=== PATIENT | male | born 1930 | race Two or more races ===

== ENCOUNTER 2016-04-28 08:24 | Outpatient (CLI) | payer MEDICARE, OTHER | END 2016-04-28 08:30 | LOC: LAB 08:24 | PROVIDERS: ATTEND Internal Medicine Cardiovascular Disease | DX: I10 Essential (primary) hypertension (principal); I44.1 Atrioventricular block, second degree | CPT/HCPCS: 36415; 80061; 84153; 84443 ==

== ENCOUNTER 2018-11-27 19:43 | Outpatient (CLI) | payer MEDICARE, OTHER ==
[2018-11-28 11:40] LABS: BASOPHILS % 0.3 % (0.0-1.5); NEUTROPHILS # 5.3 # k/uL (1.4-7.7)
[2018-11-28 11:41] LABS: eGFR (Non-African) 42
== END 2018-11-27 19:46 ==
LOC: LAB 19:43
PROVIDERS: ATTEND Family Medicine
CPT/HCPCS: 80053; 85025

== ENCOUNTER 2018-12-05 10:38 | Outpatient (CLI) | payer MEDICARE, OTHER ==
[2018-12-05 12:16] LABS: eGFR (Non-African) 44
== END 2018-12-05 10:40 ==
LOC: LAB 10:38
PROVIDERS: ATTEND Family Medicine
DX: I10 Essential (primary) hypertension (principal); R74.8 Abnormal levels of other serum enzymes; K81.9 Cholecystitis, unspecified
CPT/HCPCS: 36415; 80053